=== PATIENT | male | born 1970 ===

== ENCOUNTER 2025-08-31 11:30 | Emergency (ER) | payer OTHER, SELFPAY ==
[2025-08-31 11:40] VITALS: BP 139/92; PULSE 84; RESP 18; TEMP 36.8; O2SAT 97; BMI 24.7
--- NOTE | 2025-08-31 11:41 | ECG_ITS ---
Test Reason : weakness Blood Pressure : */* mmHG Vent. Rate : 79 BPM Atrial Rate : 79 BPM P-R Int : 168 ms QRS Dur : 94 ms QT Int : 372 ms P-R-T Axes : 36 -24 23 degrees QTcB Int : 426 ms Normal sinus rhythm Normal ECG No previous ECGs available Referred By: Yoshi Hood Electronically Signed By: MATT ARCHIBALD MD
--- NOTE | 2025-08-31 11:41 | ED.GENADULT ---
HPI - General Adult General Chief complaint: General Medical Stated complaint: Diabetic- Dizziness Time Seen by Provider: 08/31/25 14:45 Related Data Allergies Allergy/AdvReac Type Severity Reaction Status Date / Time No Known Allergies Allergy Verified 08/31/25 11:42 [facility] Social History Social History Advance Directives: No Advance Directives Information Provided: Yes Do you have a plan to hurt others: No Plan Physical Exam ED Vital Signs: BMI result Body Mass Index 24.7 Course Course Course Narrative: RME, this is a rapid medical exam performed by Christiano Hood please refer to primary provider for complete H&P- 54-year-old male presents for evaluation of blurry vision, elevated blood sugars. He reports it has been over 400. he has a known diabetic. Plan for labs, viral swabs. Medications Administered Discontinued Medications Generic Name Dose Route Start Last Admin Trade Name Freq PRN Reason Stop Dose Admin Sodium Chloride 1,000 mls @ 999 mls/hr 08/31/25 14:45 08/31/25 16:51 Ns IV 08/31/25 15:45 Infused .Q1H1M JAZ Infusion Lactated Ringer's 1,000 mls @ 999 mls/hr 08/31/25 15:00 08/31/25 16:51 Lr IV 08/31/25 16:00 Infused .Q1H1M JAZ Infusion Medical Decision Making Lab Data 08/31/25 11:58 08/31/25 11:58 Labs: Lab Results 08/31/25 08/31/25 08/31/25 Range/Units 11:58 12:08 16:28 WBC 6.9 (4.8-10.8) X10*3/uL RBC 5.83 H (4.60-5.80) X10*6/uL Hgb 15.0 (14.0-18.0) g/dl Hct 45.9 (42.0-52.0) % MCV 78.7 L (80.0-98.0) fL MCH 25.7 L (27.0-33.0) pg MCHC 32.7 (31.0-36.0) g/dl RDW 13.0 (11.0-16.0) % Plt Count 234 (160-400) X10*3/uL MPV 9.8 (9.4-12.4) fL Immature Gran % (Auto) 0.3 (0.0-0.4) % Neut % (Auto) 62.2 (45-73) % Lymph % (Auto) 30.7 (20-40) % [place] % (Auto) 4.7 (2-11) % Eos % (Auto) 1.2 (0-4) % Baso % (Auto) 0.9 (0-2) % Lymph # (Auto) 2.1 (1.2-4.9) X10*3/uL [place] # (Auto) 0.3 (0.1-1.2) X10*3/uL Eos # (Auto) 0.1 (0.0-0.4) X10*3/uL Baso # (Auto) 0.1 (0.0-0.2) X10*3/uL Abs Immat Gran (auto) 0.02 (0.00-0.03) X10*3/uL Absolute Neuts (auto) 4.3 (2.0-8.3) x10*3/uL Absolute Nucleated RBC 0.000 (0.0-0.012) X10*3/uL Nucleated RBC % (auto) 0.0 (0.0-0.2) /100WBC VBG pH 7.37 (7.32-7.43) VBG pCO2 37 mmHg VBG pO2 38 mmHg VBG HCO3 22 (22-26) mmol/L VBG O2 Saturation 56.0 % VBG Base Excess -2.6 mmol/L Sodium 134 L (135-145) mmol/L Potassium 4.5 (3.3-5.1) mmol/L Chloride 100 (96-108) mmol/L Carbon Dioxide 23 (22-29) mmol/L Anion Gap 16 (12-20) BUN 20 H (9-16) mg/dL Creatinine 0.83 (0.5-1.4) mg/dL Estim Creat Clear Calc 98.4 Estimated GFR > 60 POC Glucose 168 H (60-115) mg/dL Random Glucose 469 H* (60-115) mg/dL Calcium 10.0 (8.4-10.2) mg/dL Total Bilirubin 0.5 (0.0-1.0) mg/dL AST 22 (5-37) U/L ALT 28 (0-40) U/L Alkaline Phosphatase 155 H (39-117) U/L Total Protein 7.4 (6.5-8.0) g/dL Albumin 4.6 (3.5-5.0) g/dL Lipase 34 (8-78) U/L Beta-Hydroxybutyrate 0.29 H (0.02-0.27) mmol/L Urine Color Yellow Urine Appearance Clear Urine pH 5.0 (5.0-9.0) Ur Specific [place] >= 1.030 H (1.005-1.025) Urine Protein Negative (Neg-Trace) mg/dL Urine Glucose (UA) >=1000 H (Negative) mg/dL Urine Ketones Trace (Negative) mg/dL Urine Blood Negative (Negative) Urine Nitrite Negative (Negative) Ur Leukocyte Esterase Negative (Negative) Urine RBC 0-2 (0-2) /HPF Urine WBC 0-5 (0-5) /HPF Ur Squamous Epith Cells 0-2 (0-2) /HPF Urine Bacteria None Seen (None Seen) Hyaline Casts 0-2 (0-2) /LPF Influenza Type A (PCR) NEGATIVE (Negative) Influenza Type B (PCR) NEGATIVE (Negative) RSV RNA Qual (PCR) NEGATIVE (Negative) SARS-CoV-2 RNA (RT-PCR) NEGATIVE (Negative) Discharge Plan Discharge Clinical Impression: Hyperglycemia due to type 2 diabetes mellitus Patient Disposition: Home, Self-Care Instructions: Type 2 Diabetes Management for Adults (ED) Additional Instructions: You were evaluated in the ED today for elevated blood sugar. You were given 2 L of fluids in the ED today with improvement. Your blood work is otherwise reassuring. You have an appointment with your insurance company next week regarding your Jardiance prescription. Please ensure you go to this appointment. Touch base with your primary care provider Tuesday morning for follow-up. We have also provided you with a good Rx card to take to the pharmacy to help fill your Jardiance prescription. Continue metformin twice daily. Continue monitoring your sugars at home. Return to the ED with any new or worsening symptoms. In the case of an emergency call 911. Referrals: Physician,Roddy J [Primary Care Provider, Medical] Interventions: ED Discharge Assessment Last Done: 08/31/25 17:19 Discharge Date/Time: 08/31/25 17:20 Print Language: Icelandic
[2025-08-31 12:07] LABS: MANUAL DIFF FLAG NO
[2025-08-31 12:09] LABS: Hematocrit 45.9 % (42.0-52.0); Hemoglobin 15.0 g/dl (14.0-18.0); Imm Gran Abs Auto 0.02 X10*3/uL (0.00-0.03); Imm Gran Pct Auto 0.3 % (0.0-0.4); Lymphocytes Absolute Auto 2.1 X10*3/uL (1.2-4.9); Mean Corpuscular HGB Conc 32.7 g/dl (31.0-36.0); Mean Corpuscular Hemoglobin 25.7 pg (27.0-33.0); Mean Corpuscular Volume 78.7 fL (80.0-98.0); NRBC Abs Auto 0.000 X10*3/uL (0.0-0.012); NRBC Pct Auto 0.0 /100WBC (0.0-0.2); Platelet Count 234 X10*3/uL (160-400); Red Blood Count 5.83 X10*6/uL (4.60-5.80); White Blood Count 6.9 X10*3/uL (4.8-10.8)
[2025-08-31 12:13] LABS: VBG HCO3 22 mmol/L (22-26); VBG O2 % Saturation 56.0 %
[2025-08-31 12:14] LABS: Venous Blood Gas Refer to POC result
[2025-08-31 12:16] LABS: Appearance Urine Clear; Glucose Urine UA >=1000 mg/dL (Negative); PH 5.0 (5.0-9.0); Specific Gravity - Urine >= 1.030 (1.005-1.025); UMIC TRIGGER UACC YES
[2025-08-31 12:26] LABS: Anion Gap 16 (12-20)
[2025-08-31 12:38] LABS: Alanine Aminotransferase 28 U/L (0-40); Albumin Level 4.6 g/dL (3.5-5.0); Alkaline Phosphatase 155 U/L (39-117); Aspartate Amino Transferase 22 U/L (5-37); Blood Urea Nitrogen 20 mg/dL (9-16); Calcium 10.0 mg/dL (8.4-10.2); Carbon Dioxide 23 mmol/L (22-29); Chloride 100 mmol/L (96-108); Creatinine Clr Calc Pharmacy 98.4; Estimated Glomerular Filt Rate > 60; Lipase 34 U/L (8-78); Potassium 4.5 mmol/L (3.3-5.1); Sodium 134 mmol/L (135-145); Total Protein 7.4 g/dL (6.5-8.0)
[2025-08-31 12:45] LABS: Resp Syncy Virus RNA Qual PCR NEGATIVE (Negative); SARS COV2 PCR INHOUSE NEGATIVE (Negative)
--- NOTE | 2025-08-31 14:13 | MHC.EDTECH ---
EKG documented for previous tech
[2025-08-31] MEDS: Lactated Ringers 1,000 ML 999 ML IV (15:38)
[2025-08-31 16:32] VITALS: BP 129/75; PULSE 75; RESP 18; TEMP 36.6; O2SAT 97
[2025-08-31 16:32] LABS: Glucose, Whole Blood 168 mg/dL (60-115)
[2025-08-31 17:19] VITALS: BP 129/75; PULSE 75; RESP 18; TEMP 36.6; O2SAT 97
== END 2025-08-31 17:20 | disposition home or self-care (01) ==
PROVIDERS: Physician Assistant; Emergency Provider Emergency Medicine
DX: E11.65 Type 2 diabetes mellitus with hyperglycemia (principal); Z03.818 Encounter for observation for suspected exposure to other biological agents ruled out
CPT/HCPCS: 80053; 81001; 82010; 82803; 82947; 83690; 85025; 87637; 93005; 96360; 99284; J7120

== ENCOUNTER → 2025-08-31 11:41 | Outpatient (BNV) | payer SELFPAY | PROVIDERS: Emergency Provider Emergency Medicine; Visit Provider Internal Medicine Cardiovascular Disease | DX: R53.1 Weakness (principal) | CPT/HCPCS: 93010 ==